=== PATIENT | male | born 1960 | race Caucasian/White ===

== ENCOUNTER 2021-02-01 06:13 | Emergency (ER) | payer SELFPAY ==
[~2021-02-01] VITALS: Ht 185.4 cm; Wt 98.4 kg
[2021-02-01] MEDS ORDERED: NAPR220C14 PO (06:30)
[2021-02-01] MEDS ORDERED: LIDOCAINE W/EPINEPHRINE 1% 20ML VIAL SC ONE (09:50)
--- NOTE | 2021-02-01 11:09 | REP ---
INDICATION: mass posterior neck ? abscess vs other COMPARISON: None. TECHNIQUE: Directed grayscale and color B-mode ultrasound examination using linear high-frequency transducer. FINDINGS: Ultrasound examination directed overlying the palpable mass along the posterior right side of the neck demonstrates a heterogeneous avascular ovoid solid lesion measuring 2.6 x 1.0 x 2.6 cm IMPRESSION: Nonspecific ovoid avascular lesion in the subcutaneous tissue. Finding may represent pathologic lymph node or granuloma as well as possible heterogeneous complex lipoma. Consider short-term follow-up and if there is no evidence for change, consider MRI for further investigation. <Electronically signed by Og Quinones > 02/01/21 [id number]
--- NOTE | 2021-02-01 11:37 | ED PDOC ---
Post-Departure Follow-Up dr robb faxed formal report of hima us for fu Ana Lilia Carmona MD Feb 01, 2021 11:37
[2021-02-01 11:38] VITALS: BP 142/84
== END 2021-02-01 12:15 | disposition home or self-care (01) ==
LOC: M ED 06:13
DX: M79.9 Soft tissue disorder, unspecified (principal); Z88.0 Allergy status to penicillin

== ENCOUNTER → 2024-04-25 | Outpatient (CLI) | payer OTHER ==
[~2024-04-25] MED LIST: NAPR220C14 PO
== END ==
LOC: M PLARAD 08:43
PROVIDERS: ATTEND Otolaryngology
DX: R22.1 Localized swelling, mass and lump, neck (principal)

== ENCOUNTER → 2024-07-22 | Outpatient (CLI) | payer MEDICARE, OTHER | LOC: M EKG 06:09 | PROVIDERS: ATTEND Anesthesiology | DX: Z01.818 Encounter for other preprocedural examination (principal) ==

== ENCOUNTER 2024-07-31 10:28 | Day surgery (SDC) | payer MEDICARE, OTHER ==
[~2024-07-31] VITALS: Ht 182.9 cm; Wt 97.5 kg
[~2024-07-31 10:28] MED LIST changes: +ACETAMINOPHEN 1000MG/100ML IV BAG As Ordered ONE; +LIDOCAINE 2% 100MG/5ML SDV (FOR ANES.) As Ordered ONE; +MIDAZOLAM INJ 2MG/2ML VIAL As Ordered ONE; +ONDANSETRON 4MG 2ML VIAL As Ordered ONE; +ROCURONIUM BROMIDE 50MG/5ML VIAL As Ordered ONE; +fentaNYL 100 MCG/2 ML INJECTION As Ordered ONE; +propofoL 200 MG/20 ML VIAL As Ordered ONE
[2024-07-31] MEDS ORDERED: NS (Normal Saline) 0.9% 1,000 ML IV SCH ×2 (11:00→15:55)
[2024-07-31] MEDS ORDERED: SUGAMMADEX SODIUM 500 MG/5 ML VIAL (BRIDION) As Ordered ONE (14:41)
[2024-07-31] MEDS ORDERED: dexmedeTOMIDine (4MCG/ML)200MCG/50ML BTL (PRECEDEX) As Ordered ONE (15:09)
[2024-07-31] MEDS: LIDOCAINE W/EPINEPHRINE 1% 20ML VIAL As Ordered ONE (15:49)
[2024-07-31] MEDS ORDERED: fentaNYL 100 MCG/2 ML INJECTION IV PRN (15:55)
[2024-07-31] MEDS ORDERED: ONDANSETRON 4MG 2ML VIAL IV PRN (15:55)
[2024-07-31] MEDS ORDERED: HYDROMORPHONE HCL 0.5 MG/ 0.5 ML SYRINGE IV PRN (15:55)
[2024-07-31] MEDS: POLYSPORIN TOPICAL OINTMENT 15GM As Ordered ONE (15:57)
[2024-07-31] MEDS: oxyCODONE 5MG TAB PO PRN (16:35)
[2024-07-31 17:20] VITALS: BP 127/75; TEMP 97.8; O2SAT 97
== END 2024-07-31 17:22 | disposition home or self-care (01) ==
LOC: M SDC 10:28
PROVIDERS: ATTEND Otolaryngology
DX: D17.0 Benign lipomatous neoplasm of skin and subcutaneous tissue of head, face and neck (principal); F17.210 Nicotine dependence, cigarettes, uncomplicated; Z88.0 Allergy status to penicillin
CPT/HCPCS: 21552; 88304; J0131; J1100; J2250; J2405; J3010